=== PATIENT | female | born 1955 | race Caucasian/White ===

== ENCOUNTER 2020-07-11 23:26 | Emergency (ER) | payer MEDICAID ==
[~2020-07-11] VITALS: Ht 152.4 cm; Wt 86.2 kg
[2020-07-11 23:35] VITALS: BP 118/64
--- NOTE | 2020-07-11 23:35 | NUR ---
TO BED 3 VIA [facility], PRIMARILY [place] SPE[place]ING FEMALE, WITH C/O CHEST DISCOMFORT X 2 HRS WITH SOB X 1 WEEK. POINTS TO MID STERNUM WHEN ASKED WHERE PAIN IS. RECEIVED COVID SCREEN 4 DAYS AGO WITH NO RESULTS YET. 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 O2 SAT = 96% ON R/A PMH: ASTHMA, STROKE ALLERGIES: GABAPENTIN, IODINE
--- NOTE | 2020-07-11 23:35 | NUR ---
BIBA TO ER BED 3
--- NOTE | 2020-07-11 23:45 | NUR ---
DR MORROW AT BEDSIDE FOR EXAM. EKG IN PROGRESS
--- NOTE | 2020-07-11 23:45 | NUR ---
EKG PERFORMED AT BEDSIDE. EKG READS SINUS RHYTHM @ 88
--- NOTE | 2020-07-12 | NUR ---
20G SL ESTABLISHED RIGHT HAND, LABS DRAWN WITH BLOOD CULTURES
[2020-07-12 00:30] LABS: BASOPHILS % (AUTO) 0.9 % (0.0-2.0); EOSINOPHILS % (AUTO) 0.1 % (0.0-4.0); HEMATOCRIT 36.9 % (36-48); HEMOGLOBIN 12.6 g/dL (12.0-16.0); LYMPHOCYTES # (AUTO) 0.6 K/uL (2.5-16.5); LYMPHOCYTES % (AUTO) 17.2 % (20.5-51.1); MEAN CORPUSCULAR HEMOGLOBIN 37 pg (27-31); MEAN CORPUSCULAR HGB CONC 34 g/dL (33-37); MEAN CORPUSCULAR VOLUME 108.7 fL (80-94); MONOCYTES # (AUTO) 0.3 K/uL (0.8-1.0); MONOCYTES % (AUTO) 7.1 % (1.7-9.3); NEUTROPHILS # (AUTO) 2.8 K/uL (1.8-7.7); NEUTROPHILS % (AUTO) 74.7 % (42.2-75.2); PLATELET COUNT (AUTO) 317 K/uL (140-450); RED BLOOD CELL COUNT(AUTO) 3.39 MIL/uL (4.20-5.40); RED CELL DISTRIBUTION WIDTH 13.8 % (11.6-13.7); WHITE BLOOD COUNT (AUTO) 3.7 K/uL (4.8-10.8)
[2020-07-12 00:47] LABS: C-REACTIVE PROTEIN QUANT 7.7 mg/dL (0.0-0.9)
[2020-07-12 00:56] LABS: ALBUMIN 3.3 g/dL (3.4-5.0); ANION GAP 12.3 (8-16); CARBON DIOXIDE 25.8 mmol/L (21-32); CREATININE 0.7 mg/dL (0.6-1.3); POTASSIUM 4.1 mmol/L (3.5-5.1); TOTAL BILIRUBIN 0.8 mg/dL (0.0-1.0)
[2020-07-12 00:59] LABS: LACTATE DEHYDROGENASE 362 U/L (81-234)
--- NOTE | 2020-07-12 01:11 | NUR ---
BIANKA SWAB COLLECTED AND TAKEN TO LAB.
[2020-07-12 01:21] LABS: PROTHROMBIN TIME 17.7 secs (10.8-13.4)
[2020-07-12 02:00] VITALS: BP 124/68
--- NOTE | 2020-07-12 02:01 | NUR ---
RESTING IN BED WITH EYES CLOSED. RESPIRATIONS REGULAR AND UNLABORED
--- NOTE | 2020-07-12 02:30 | NUR ---
DR. MORROW AT BEDSIDE FOR RE-EXAM, EVALUATION AND DISPOSITION. PT TO BE DISCHARGED
--- NOTE | 2020-07-12 02:45 | NUR ---
AMBULATED TO BR WITH STEADY GAIT
--- NOTE | 2020-07-12 03:15 | NUR ---
Patient discharged with v/s stable. Written and verbal after care instructions given and explained. Patient alert, oriented and verbalized understanding of instructions. Ambulatory with steady gait. All questions addressed prior to discharge. ID band removed. Patient advised to follow up with PMD. Rx of AZITHROMYCIN, VITAMIN D3, ALBUTEROL given. Patient educated on indication of medication including possible reaction and side effects. Opportunity to ask questions provided and answered.
== END 2020-07-12 03:15 | disposition home or self-care (01) ==
LOC: MED 23:26
DX: U07.1 COVID-19 (principal); Z88.8 Allergy status to other drugs, medicaments and biological substances; Z86.73 Personal history of transient ischemic attack (TIA), and cerebral infarction without residual deficits
CPT/HCPCS: 36415; 71045; 80053; 82550; 82728; 83605; 83615; 83880; 84484; 85025; 85384; 85610; 85730; 86140; 87040; 93005; 99285